=== PATIENT | female | born 1995 | race American Indian/Alaskan Native ===

== ENCOUNTER 2018-07-14 21:17 | Emergency (ER) | payer OTHER ==
[2018-07-14 21:23] VITALS: BP 115/72
--- NOTE | 2018-07-14 21:33 | Emergency Department Report ---
Blank Doc - Documentation Documentation: 22 y o female presents with right sided pelvic pain with hx of r ov cyst in ja nuary 2019 presents with pain with no vag bleed lmp 06/07/18
[2018-07-14 22:15] LABS: Bacteria,Urine 1+ /HPF (Negative); Bilirubin,Urine NEG (Negative); Blood,Urine NEG (Negative); Color,Urine Amber (Yellow); Mucus,Urine 3+ /HPF
[2018-07-14 22:18] LABS: HCG Qualitative,Urine Negative (Negative)
--- NOTE | 2018-07-15 00:33 | Emergency Department Report ---
ED Female HPI - General Chief complaint: Abdominal Pain Stated complaint: ABD PAIN ULCER Time Seen by Provider: 07/14/18 21:30 Source: patient Mode of arrival: Ambulatory Limitations: No Limitations - History of Present Illness Initial comments: 22-year-old -Nigerien female presents to the emergency room for right abdominal pain and nausea 2 hours prior to arrival. Patient denies any vomiting. She also complains of vaginal irritation in the vaginal pain when she urinates. Patient reports that she has a right dermoid cyst but has not had it removed. Patient denies any fever or chills. When I came in to reexamine patient patient reports that she has no pain now. Patient reports that she is sexually active with females. 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 denies: vaginal discharge, vaginal bleeding - Related Data Sexually active: Yes (unprotected females) Previous Rx's Medication Instructions Recorded Last Taken Type Ibuprofen [Motrin 600 MG tab] 600 mg PO Q8H PRN #21 tablet 07/15/18 Unknown Rx Allergies Allergy/AdvReac Type Severity Reaction Status Date / Time aspirin Allergy Unknown Verified 07/14/18 21:35 Sulfa (Sulfonamide Allergy Unknown Verified 07/14/18 21:35 Antibiotics) ED Review of Systems ROS: Stated complaint: ABD PAIN ULCER Other details as noted in HPI Comment: All other systems reviewed and negative Constitutional: denies: chills, fever Eyes: denies: eye pain, eye discharge, vision change ENT: denies: ear pain, throat pain Respiratory: denies: cough, shortness of breath, wheezing Gastrointestinal: abdominal pain (resolved) Skin: rash (vaginal) ED Past Medical Hx - Past Medical History Previous Medical History?: Yes Additional medical history: Right Ovarian Cyst - Surgical History Past Surgical History?: No - Social History Smoking Status: Unknown if ever smoked Substance Use Type: None - Medications Home Medications: Home Medications Medication Instructions Recorded Confirmed Last Taken Type Ibuprofen [Motrin 600 MG tab] 600 mg PO Q8H PRN #21 tablet 07/15/18 Unknown Rx ED Physical Exam - General Limitations: No Limitations - ENT ENT exam: Present: mucous membranes moist - Neck Neck exam: Present: normal inspection - Respiratory Respiratory exam: Present: normal lung sounds bilaterally. Absent: respiratory distress - GI/Abdominal GI/Abdominal exam: Present: soft, normal bowel sounds. Absent: distended, tenderness, guarding, rebound, rigid - External exam: Present: erythema, swelling, lacerations (1.mm). Absent: lesions, bleeding - Extremities Exam Extremities exam: Present: normal inspection - Back Exam Back exam: Present: normal inspection - Neurological Exam Neurological exam: Present: alert, oriented X3 - Psychiatric Psychiatric exam: Present: normal affect, normal mood - Skin Skin exam: Present: warm, dry, intact, normal color. Absent: rash ED Course Vital Signs 07/14/18 07/14/18 21:21 21:33 Temperature 98.8 F 98.8 F Pulse Rate 93 H 93 H Respiratory 18 18 Rate Blood Pressure 115/72 115/72 O2 Sat by Pulse 98 98 Oximetry ED Medical Decision Making - Medical Decision Making Patient has been evaluated by this provider in fast track. 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 Recommend patient to try [id number] vaginal anti-itch cream. Also discussed with patient that is very important for her to follow-up with a DIESEL TECHNICIAN provider to have her right ovarian cyst evaluated. Patient verbalizes understanding Critical care attestation.: If time is entered above; I have spent that time in minutes in the direct care of this critically ill patient, excluding procedure time. ED Disposition Clinical Impression: Labia irritation, Other ovarian cyst, right side Disposition: - TO HOME OR SELFCARE Is pt being admited?: No Does the pt Need Aspirin: No Condition: Stable Instructions: Abdominal Pain (ED) Additional Instructions: Take pain medication as needed. Please try [id number] vagiseal cream to the external labia. Follow up with her DIESEL TECHNICIAN for your right ovarian cyst. Prescriptions: Ibuprofen [Motrin 600 MG tab] 600 mg PO Q8H PRN #21 tablet PRN Reason: Pain Referrals: CRYSTAL LICEA MD [Primary Care Provider] - 3-5 Days [facility] [Provider Group] - 3-5 Days
== END 2018-07-15 00:57 | disposition home or self-care (01) ==
LOC: ED 21:17
DX: N83.291 Other ovarian cyst, right side (principal); N89.8 Other specified noninflammatory disorders of vagina
CPT/HCPCS: 81001; 81025; 99283

== ENCOUNTER 2018-08-11 20:23 | Emergency (ER) | payer OTHER ==
--- NOTE | 2018-08-11 20:33 | Emergency Department Report ---
Blank Doc - Documentation Documentation: 23 year female c/o vaginal discharge and vaginal irritation time 1 week. LMP .
[2018-08-11 21:53] LABS: Bacteria,Urine 1+ /HPF (Negative); Bilirubin,Urine NEG (Negative); Blood,Urine SM (Negative); Color,Urine Yellow (Yellow); Protein,Urine <15 mg/dL mg/dL (Negative); Urobilinogen,Urine < 2.0 mg/dL (<2.0)
[2018-08-11] MEDS ORDERED: ROCEPHIN IM ONE (23:36)
[2018-08-11] MEDS ORDERED: XYLOCAINE 1% MPF 5 mL INFILTRATI ONE (23:36)
[2018-08-11] MEDS ORDERED: ZITHROMAX PO ONE (23:36)
--- NOTE | 2018-08-12 00:16 | Emergency Department Report ---
ED Female HPI - General Chief complaint: Urogenital-Female Stated complaint: VAGINAL ISSUES Time Seen by Provider: 08/11/18 23:02 Source: patient Mode of arrival: Ambulatory Limitations: No Limitations - History of Present Illness Initial comments: Patient is a -I[place]ian female who presents with vaginal discharge and irritation 1 week he states last contact with female 1 week ago discharges yellow-green is no fever no chills no abdominal pain no nausea vomiting patient does endorse dysuria frequency and urgency MD Complaint: vaginal discharge, dysuria Onset/Timin -: week(s) Severity: moderate Severity scale (0 -10): 5 Quality: burning Consistency: constant Improves with: none Worsens with: urination Are you Now?: No Last Menstrual Period: 08/05/18 EDC: 05/12/19 Associated Symptoms: vaginal discharge, dysuria - Related Data Sexually active: Yes Previous Rx's Medication Instructions Recorded Last Taken Type Ibuprofen [Motrin 600 MG tab] 600 mg PO Q8H PRN #21 tablet 07/15/18 Unknown Rx Fluconazole [Diflucan TAB] 150 mg PO ONCE #1 tablet 08/12/18 Unknown Rx metroNIDAZOLE [Flagyl] 500 mg PO BID 10 Days #20 tab 08/12/18 Unknown Rx Allergies Allergy/AdvReac Type Severity Reaction Status Date / Time aspirin Allergy Unknown Verified 07/14/18 21:35 segundo young Allergy Unknown Verified 08/11/18 20:26 Sulfa (Sulfonamide Allergy Unknown Verified 07/14/18 21:35 Antibiotics) ED Review of Systems ROS: Stated complaint: VAGINAL ISSUES Other details as noted in HPI Constitutional: denies: chills, fever Eyes: denies: eye pain, eye discharge, vision change ENT: denies: ear pain, throat pain Respiratory: denies: cough, shortness of breath, wheezing Cardiovascular: denies: chest pain, palpitations Endocrine: no symptoms reported Gastrointestinal: denies: abdominal pain, nausea, diarrhea Genitourinary: urgency, dysuria, discharge Musculoskeletal: denies: back pain, joint swelling, arthralgia Skin: denies: rash, lesions Neurological: denies: headache, weakness, paresthesias Psychiatric: denies: anxiety, depression Hematological/Lymphatic: denies: easy bleeding, easy bruising ED Past Medical Hx - Past Medical History Previous Medical History?: Yes Additional medical history: Right Ovarian Cyst - Surgical History Past Surgical History?: No - Social History Smoking Status: Current Every Day Smoker Substance Use Type: Marijuana - Medications Home Medications: Home Medications Medication Instructions Recorded Confirmed Last Taken Type Ibuprofen [Motrin 600 MG tab] 600 mg PO Q8H PRN #21 tablet 07/15/18 Unknown Rx Fluconazole [Diflucan TAB] 150 mg PO ONCE #1 tablet 08/12/18 Unknown Rx metroNIDAZOLE [Flagyl] 500 mg PO BID 10 Days #20 tab 08/12/18 Unknown Rx ED Physical Exam - General Limitations: No Limitations General appearance: alert, in no apparent distress - Head Head exam: Present: atraumatic, normocephalic - Eye Eye exam: Present: normal appearance, PERRL, EOMI - ENT ENT exam: Present: mucous membranes moist - Neck Neck exam: Present: normal inspection - Respiratory Respiratory exam: Present: normal lung sounds bilaterally. Absent: respiratory distress, wheezes, stridor, chest wall tenderness - Cardiovascular Cardiovascular Exam: Present: regular rate, normal rhythm, normal heart sounds. Absent: systolic murmur, diastolic murmur, rubs, gallop - GI/Abdominal GI/Abdominal exam: Present: soft, normal bowel sounds. Absent: distended, tenderness, guarding, rebound, rigid, bruit, hernia - Rectal Rectal exam: Present: deferred - External exam: Present: erythema. Absent: lesions, lacerations, ecchymosis, bleeding Speculum exam: Present: erythema, vaginal discharge (yellow green ), cervical discharge. Absent: vaginal bleeding, foreign body, tissue, laceration Bi-manual exam: Absent: cervical motion tendernes - Extremities Exam Extremities exam: Present: normal inspection, full ROM, normal capillary refill. Absent: tenderness - Back Exam Back exam: Present: normal inspection, full ROM. Absent: tenderness, rash noted - Neurological Exam Neurological exam: Present: alert, oriented X3, CN II-XII intact, normal gait - Psychiatric Psychiatric exam: Present: normal affect, normal mood - Skin Skin exam: Present: warm, dry, intact, normal color. Absent: rash ED Course Vital Signs 08/11/18 08/11/18 20:27 20:31 Temperature 98.6 F 98 F Pulse Rate 82 84 Respiratory 16 18 Rate Blood Pressure 122/52 122/52 O2 Sat by Pulse 99 100 Oximetry ED Medical Decision Making - Lab Data Labs 08/11/18 Unknown Urine Color Yellow Urine Turbidity Slightly-cloudy Urine pH 6.0 Ur Specific [place] 1.017 Urine Protein <15 mg/dl Urine Glucose (UA) Neg Urine Ketones Neg Urine Blood Sm Urine Nitrite Neg Urine Bilirubin Neg Urine Urobilinogen < 2.0 Ur Leukocyte Esterase Lg Urine WBC (Auto) 13.0 H Urine RBC (Auto) 13.0 U Epithel Cells (Auto) 2.0 Urine Bacteria (Auto) 1+ - Medical Decision Making UA pos for leuk, wbc, wet prep, gc/chlamydia cultures are pending, vaginal exam concerning for STI, plan tx for STI, UTI pt will follow up with pcp in 2-3 days , have partner seek treatment , follow up with health department for HIV and HSV screening, pt verbalized agreement and understanding of discharge plan. Critical care attestation.: If time is entered above; I have spent that time in minutes in the direct care of this critically ill patient, excluding procedure time. ED Disposition Clinical Impression: Bacterial vaginosis UTI (urinary tract infection) Qualifiers: Urinary tract infection type: acute cystitis Hematuria presence: without hematuria Qualified Code(s): N30.00 - Acute cystitis without hematuria Disposition: TO HOME OR SELFCARE Is pt being admited?: No Does the pt Need Aspirin: No Condition: Stable Instructions: Bacterial Vaginosis (ED), Urinary Tract Infection in Women (ED) Prescriptions: Fluconazole [Diflucan TAB] 150 mg PO ONCE #1 tablet metroNIDAZOLE [Flagyl] 500 mg PO BID 10 Days #20 tab Referrals: MACY RAMIREZ MD [Staff Physician] - 3-5 Days Forms: STI Treatment and Prevention, Work/School Release Form(ED) Time of Disposition: 00:23
[2018-08-12 00:28] VITALS: BP 116/49
[2018-08-12 00:33] LABS: HCG Qualitative,Urine Negative (Negative)
== END 2018-08-12 00:46 | disposition home or self-care (01) ==
LOC: ED 20:23
DX: N76.0 Acute vaginitis (principal); B96.89 Other specified bacterial agents as the cause of diseases classified elsewhere; N30.00 Acute cystitis without hematuria; F17.200 Nicotine dependence, unspecified, uncomplicated; F12.10 Cannabis abuse, uncomplicated; Z88.6 Allergy status to analgesic agent; Z88.2 Allergy status to sulfonamides
CPT/HCPCS: 81001; 81025; 87210; 87591; 96372; 99284; J0696

== ENCOUNTER 2018-09-30 04:10 | Emergency (ER) | payer SELFPAY ==
[2018-09-30 04:51] VITALS: BP 104/56
--- NOTE | 2018-09-30 07:21 | Emergency Department Report ---
Minor Respiratory - HPI Chief Complaint: Upper Respiratory Infection Stated Complaint: SORE THROAT, CONGESTION, COUGH, HEADACHE Time Seen by Provider: 09/30/18 07:14 Duration: 5 Days Pain Location: Throat Minor Respiratory: Yes Rhinorrhea, Yes Sore Throat, Yes Cough Other History: 23-year-old female presents to the emergency room for complaints of sore throat diarrhea cough chest congestion and rhinorrhea and nasal congestion for 1 week. Patient reports that she taken Tylenol last night and TheraFlu. Patient has past medical history of ovarian cysts. She is allergic to sulfur segundo beans and aspirin. She denies any fever or chills. ED Review of Systems ROS: Stated complaint: SORE THROAT, CONGESTION, COUGH, HEADACHE Other details as noted in HPI ENT: throat pain, congestion, other (rhinorrhea) Respiratory: cough, other (chest congestion) Gastrointestinal: diarrhea Genitourinary: denies: urgency, dysuria, discharge Musculoskeletal: denies: back pain, joint swelling, arthralgia Skin: denies: rash, lesions Neurological: denies: headache, weakness, paresthesias Psychiatric: denies: anxiety, depression Hematological/Lymphatic: denies: easy bleeding, easy bruising ED Past Medical Hx - Past Medical History Previous Medical History?: Yes Additional medical history: Right Ovarian Cyst - Surgical History Past Surgical History?: No - Social History Smoking Status: Current Every Day Smoker Substance Use Type: None - Medications Home Medications: Home Medications Medication Instructions Recorded Confirmed Last Taken Type Ibuprofen [Motrin 600 MG tab] 600 mg PO Q8H PRN #21 tablet 07/15/18 Unknown Rx Fluconazole [Diflucan TAB] 150 mg PO ONCE #1 tablet 08/12/18 Unknown Rx Nitrofurantoin Monohyd/M-Cryst 100 mg PO BID 7 Days #14 capsule 08/12/18 Unknown Rx [Macrobid 100 mg Capsule] metroNIDAZOLE [Flagyl] 500 mg PO BID 10 Days #20 tab 08/12/18 Unknown Rx Benzonatate [Tessalon Perles] 100 mg PO Q8HR #15 capsule 09/30/18 Unknown Rx Fluticasone [Flonase] 1 spray NS QDAY #1 bottle 09/30/18 Unknown Rx Levocetirizine Dihydrochloride 5 mg PO QDAY #30 tablet 09/30/18 Unknown Rx [Xyzal] Loperamide [Imodium] 2 mg PO Q2HR PRN #10 capsule 09/30/18 Unknown Rx Minor Respiratory Exam - Exam General: Vital signs noted. No distress. Alert and acting appropriately. HEENT: Yes Pharyngeal Erythema, Yes Moist Mucous Membranes (postnasal drip), Yes Rhinorrhea, No Pharyngeal Exudates, No Conjuctival Injection, No Frontal Tenderness, No Maxillary Tenderness Ear: Neither TM Bulge, Neither TM Erythema, Neither EAC Pain, Neither EAC Discharge Neck: Yes Supple, No Adenopathy Lungs: Yes Good Air Exchange, No Wheezes, No Ronchi, No Stridor, No Cough, No Labored Respirations, No Retractions, No Use of Accessory Muscles, No Other Abnormal Lung Sounds Heart: Yes Regular, No Murmur Abdomen: Yes Normal Bowel Sounds, No Tenderness, No Peritoneal Signs Skin: No Rash, No Edema Neurologic: Alert and oriented, no deficits. Musculoskeletal: Unremarkable. ED Course Vital Signs 09/30/18 04:45 Temperature 98.6 F Pulse Rate 91 H Respiratory 18 Rate Blood Pressure 104/56 O2 Sat by Pulse 99 Oximetry ED Medical Decision Making - Medical Decision Making 23-year-old -Tunisian female presents to the emergency room for viral- like syndrome. Patient will be treated for allergic rhinitis and for diarrhea. Patient is to follow up with a primary care provider for symptoms persist or gets worse. Critical care attestation.: If time is entered above; I have spent that time in minutes in the direct care of this critically ill patient, excluding procedure time. ED Disposition Clinical Impression: Diarrhea Qualifiers: Diarrhea type: unspecified type Qualified Code(s): R19.7 - Diarrhea, u nspecified Allergic rhinitis Qualifiers: Allergic rhinitis trigger: unspecified Allergic rhinitis seasonality: unspecified Qualified Code(s): J30.9 - Allergic rhinitis, unspecified Disposition: DC-01 TO HOME OR SELFCARE Is pt being admited?: No Does the pt Need Aspirin: No Condition: Stable Instructions: Allergic Rhinitis (ED) Additional Instructions: Please take medication as prescribed. Increase her water intake while taking medications. You can take Tylenol and/or ibuprofen for pain management. Follow up with the primary care provider if his symptoms persist or gets worse. I Have listed their information below for your convenience. Prescriptions: Fluticasone [Flonase] 1 spray NS QDAY #1 bottle Loperamide [Imodium] 2 mg PO Q2HR PRN #10 capsule PRN Reason: Diarrhea Benzonatate [Tessalon Perles] 100 mg PO Q8HR #15 capsule Levocetirizine Dihydrochloride [Xyzal] 5 mg PO QDAY #30 tablet Referrals: CRYSTAL LICEA MD [Primary Care Provider] - 3-5 Days Forms: Work/School Release Form(ED)
== END 2018-09-30 07:48 | disposition home or self-care (01) ==
LOC: ED 04:10
DX: J30.9 Allergic rhinitis, unspecified (principal); R19.7 Diarrhea, unspecified; Z88.6 Allergy status to analgesic agent; Z88.2 Allergy status to sulfonamides; Z91.018 Allergy to other foods; F17.200 Nicotine dependence, unspecified, uncomplicated
CPT/HCPCS: 99282